=== PATIENT | male | born 1995 | race Caucasian/White ===

== ENCOUNTER 2018-04-21 13:54 | Emergency (ER) | payer SELFPAY ==
[~2018-04-21] VITALS: Ht 175.3 cm; Wt 78.0 kg
[2018-04-21 13:59] VITALS: BP 158/92
[2018-04-21] MEDS ORDERED: KETOROLAC 60MG/2ML VIAL IM ONE (15:00)
== END 2018-04-21 17:19 | disposition home or self-care (01) ==
LOC: ER 14:34 → EDBD 14:34 → ER 17:19
DX: M54.2 Cervicalgia (principal); M54.5 Low back pain
CPT/HCPCS: 72100; 72125; 96372; 99284; J1885